=== PATIENT | female | born 1995 | race Caucasian/White ===

== ENCOUNTER 2021-07-19 10:54 | Emergency (ER) | payer OTHER ==
[~2021-07-19] VITALS: Ht 167.6 cm; Wt 59.0 kg
[2021-07-19] MEDS ORDERED: PEPCID20 MG PO (11:15)
[2021-07-19] MEDS ORDERED: ZITHROMAX500 MG PO (14:26)
[2021-07-19] MEDS ORDERED: TUSSIN DM CLEA118 M1 PO (14:26)
== END 2021-07-19 14:35 | disposition home or self-care (01) ==
LOC: EDBD 10:54 → ER 10:54
DX: B34.9 Viral infection, unspecified (principal); Z20.822 Contact with and (suspected) exposure to COVID-19